=== PATIENT | female | born 1975 | race Caucasian/White ===

== ENCOUNTER → 2020-03-20 09:45 | Outpatient (CLI) | payer OTHER, SELFPAY | PROVIDERS: PCP Student in an Organized Health Care Education/Training Program | DX: Z20.828 Contact with and (suspected) exposure to other viral communicable diseases (principal) | CPT/HCPCS: 87635; C9803; U0003 ==

== ENCOUNTER 2020-10-02 08:27 | Outpatient (RCR) | payer OTHER, SELFPAY ==
[2020-10-02] MEDS: COVID-19 VACC, MRNA(PFIZER)/PF 30 MCG/0.3 ML SYRINGE IM (12:00)
[2020-10-23] MEDS: COVID-19 VACC, MRNA(PFIZER)/PF 30 MCG/0.3 ML SYRINGE IM (13:50)
== END 2020-10-02 23:59 ==
LOC: IMMUN 08:27
PROVIDERS: PCP Student in an Organized Health Care Education/Training Program; Referring Provider Family Medicine; Visit Provider Family Medicine
DX: Z23 Encounter for immunization (principal)
CPT/HCPCS: 0001A; 0002A; 91300

== ENCOUNTER 2021-08-09 11:22 | Outpatient (CLI) | payer OTHER, SELFPAY ==
[2021-08-09 11:33] VITALS: BP 122/66; PULSE 95; RESP 16; TEMP 36.9; O2SAT 98; BMI 25.7
[2021-08-09] MEDS: 0.9% Saline Lock 10 ML Syringe IV (11:35)
[2021-08-09 12:26] VITALS: BP 99/62; PULSE 65; RESP 16; TEMP 36.8; O2SAT 98
[2021-08-09 13:21] VITALS: BP 109/70; PULSE 67; RESP 16; TEMP 37.3; O2SAT 100
== END 2021-08-09 23:59 | disposition home or self-care (01) ==
LOC: MS3OUT 11:22 → MS3 11:23
PROVIDERS: PCP Student in an Organized Health Care Education/Training Program; Referring Provider Nurse Practitioner Adult Health; Visit Provider Nurse Practitioner Adult Health
DX: Z23 Encounter for immunization (principal); U07.1 COVID-19
CPT/HCPCS: J7050; M0245; Q0245; A4216